=== PATIENT | female | born 1990 ===

== ENCOUNTER 2019-10-10 13:14 | Inpatient (IN) ==
[2019-10-10 14:04] LABS: Hematocrit 41.2 % (37.0-47.0); Hemoglobin 13.7 gm/dL (12.5-16.0); Mean Cell Volume 87.1 fl (78-100); Mean Corpuscular Hgb Conc 33.3 g/dl (32-36); Mean Platelet Volume 9.2 fl (8-12.5); Neutrophil # 14.4 K/mm3 (1.3-6.0); Neutrophil % 88.1 % (42-75.0); Platelet Count 243 K/mm3 (150-450); Red Blood Count 4.73 M/mm3 (4.2-5.4); Red Cell Distribution Width 11.6 % (11.5-14.0); White Blood Count 16.3 K/mm3 (4.0-10.5)
--- NOTE | 2019-10-10 14:06 | ERNOTE ---
Abdominal HPI - Narrative Date of Service: 10/10/19 - General Chief Complaint: Abdominal Pain Time Seen by Provider: 10/10/19 13:41 Source: patient, family - Immun/Allergies/Home Medications Immunizatons: IMMUNIZATION HX Immunizations Up to Date Yes History of Influenza Vaccine No Hx Pneumococcal Vaccination No Allergies/Adverse Reactions: Allergies No Known Allergies Allergy (Verified 01/01/15 11:05) Home Medications: HOME MEDICATIONS NK 10/10/19 [Last Taken Unknown] - History of Present Illness Narrative: -29 y/o female presents with acute symptoms over the past few hours of upper abdominal pain. Pain is 9/10. She notes she may have had an episode of this similar type pain approximately 5 to 10 years ago. She is unsure the treatment unsure the cause. She has had one child vaginal delivery without significant complications. No previous abdominal surgeries. Last menstrual cycle was 2 weeks ago without significant change. She notes this morning she is had significant nausea and emesis. Multiple episodes mostly dry heaving as she has not retained any p.o. intake this morning. Note she has attempted to drink some Gatorade that did not significant change her symptoms. Her notes that she has taken Gas-X without significant relief of symptoms. Patient otherwise notes she is mildly tired and weak diffusely, is unsure of the cause. She denies any syncope, trauma, falls. She otherwise denies any other acute symptoms. She notes no significant acute contacts or illnesses in the household. Review of Systems - Review of Systems Constitutional: Present: weakness, fatigue. Absent: fever EYE: Absent: eye discharge, blurred vision ENT: Absent: ear pain, nose pain, sore throat Respiratory: Absent: shortness of breath, cough Cardiology: Absent: chest pain, syncope Gastrointestinal/Abdominal: Present: nausea, vomiting, abdominal pain. Absent: diarrhea, constipation Genitourinary: Absent: frequency, pain, hematuria Musculoskeletal: Absent: back pain, joint pain Skin: Absent: rash, dryness Neurological: Absent: headache, numbness, tingling All Other Systems: All systems neg except as marked Medical History (Last Reviewed 10/10/19 @ 14:03 by JUDI Levine) No pertinent past medical history Surgical History: Surgical History (Last Reviewed 10/10/19 @ 14:03 by JUDI Levine) No pertinent past surgical history Family History: Family History (Last Reviewed 10/10/19 @ 14:03 by JUDI Levine) Other No pertinent family history Social History: (Last Reviewed 10/10/19 @ 14:03 by JUDI Levine) Tobacco: Smoking Status: Never smoker Alcohol: alcohol intake: never Substance Use: substance use type: does not use Physical Exam - Physical Exam General Appearance: Present: wd/wn, alert, no apparent distress Head Exam: Present: normal inspection, no evidence of injury Eye Exam: Normal inspection: bilateral, PERRL: bilateral, EOMI: bilateral Ears, Nose, Throat: Present: normal ENT inspection Neck: Present: normal inspection, nontender Respiratory: Present: no respiratory distress, normal breath sounds, no accessory muscle use, chest nontender, lungs clear Cardiovascular/Chest: Present: regular rate, rhythm, no murmur, normal peripheral pulses Peripheral Pulses: N=norm/S=strong/W=weak/B=bound/A=absent: Radial (R): Normal, Radial (L): Normal, Dorsalis-pedis (R): Normal, Dorsalis-pedis (L): Normal Gastrointestinal/Abdominal: Present: nondistended, soft, tenderness - upper diffusely Back Exam: Present: normal inspection, normal range of motion, no CVA tenderness Extremity Exam: Present: normal inspection, non-tender, normal range of motion, no edema Neurological Exam: Present: alert, oriented, normal mood/affect, no motor/sensory deficits Skin Exam: Present: normal color, warm/dry Progress - Date and Time Seen: Date and Time: 10/10/19 14:04 HPI and exam performed. Patient appears acutely ill with significant abdominal pain. Exam no significant abnormalities outside of diffuse abdominal pain in the upper and epigastric regions. Discussed with patient obtaining labs including CBC, CMP, lipase, amylase, urine, hCG, flat and upright imaging. Will begin with these exams, continue to monitor, if patient's hCG is negative will treat nausea with Zofran., Will continue to monitor patient and treat accordingly. Patient expressed understand agrees to plan. 10/10/19 15:05 Labs revealed concern for acute pancreatitis, will obtain abdominal ultrasound to further evaluate. Patient will continue n.p.o., will begin giving IV fluids. Patient was also given a dose of IV pain medication to help maintain her overall comfort. Will obtain ultrasound, evaluate results and continue to care for patient at this time. 10/10/19 16:43 Ultrasound indicated to rule out multiple risk factors including abscess and pancreatitis. Also concern for possible gallbladder causes of her acute symptoms. Ultrasound is the most appropriate imaging for both pancreatitis, abscess, gallbladder evaluation. We will continue with patient's treatment, control pain with IV medication PRN. 10/10/19 18:05 Ultrasound did not reveal any significant gallstones or gallbladder obstructions. Otherwise no other significant acute findings, based on patient's clinical picture as well as lab findings and lipase that is significantly eleva ricardo concern for acute pancreatic inflammation. Discussed the case with medicine provider iron miner blasting Dr. Norwood, including lab findings and clinical presentation. Discussed admitting patient to continue an inpatient stay patient will continue n.p.o. and fluids to be adjusted to 250/h. Medicine provider agreed with this treatment plan and will continue to monitor and further patient's care. She wi ll be admitted to the hospital at this time. - Results and Orders Patient's Lab Results:: I have reviewed the patient's lab results. Results and Orders: Laboratory Tests 10/10/19 10/10/19 10/10/19 13:55 13:55 13:58 WBC 16.3 H Hgb 13.7 Total Protein 8.4 H Amylase 2193 H Lipase 29816 H Urine Protein 30 H - Vital Signs Patient's Vital Signs:: I have reviewed the patient's vital signs. Vital Signs: Vital Signs 10/10/19 13:20 Temperature 36.0 C Pulse Rate 71 Respiratory Rate 16 Blood Pressure 103/62 O2 Sat by Pulse Oximetry 99 - X-Ray X-Ray #1 X-Ray: abdomen Interpretation: Reviewed by ga X-ray Comments: Abdomen Flat W/ Upright * DATE: 10/10/2019 3:41 PM INDICATION: Abdominal Pain. COMPARISON: None. TECHNIQUE: Supine and upright views of the abdomen were obtained. FINDINGS: Abdomen: Nonobstructive bowel gas pattern. No free air. Moderate colonic stool retention. Lower Chest: The visualized lower chest demonstrates no acute abnormality. Skeletal Structures and Soft Tissues: No acute osseous abnormality. Normal soft tissues. IMPRESSION: Nonobstructive bowel gas pattern. Moderate colonic stool retention. Electronically signed by Zoie Lowery D.O.. Zoie Lowery DO - CT/Ultrasound CT/Ultrasound Narrative: US Abdomen Complete 10/10/2019 5:31 PM INDICATION: Abdominal pain with vomiting and elevated lipase. COMPARISON: No relevant priors.. TECHNIQUE: Abdominal ultrasound was performed. Color Doppler was applied were appropriate. FINDINGS: No free fluid in the visualized abdomen. Liver: Normal hepatic parenchyma without focal mass. The liver measures 12.9 cm craniocaudal. Bile ducts: The distal common bile duct measures 2 mm. Impression Gallbladder: The gallbladder is partially distended. The wall measures 2 mm thickness. There is a questionable gallbladder polyp which measures up to 5 mm. No pericholecystic fluid. The sonographic Montalvo's sign is absent. Pancreas: Segmentally visualized pancreas which appears normal where visualized. Spleen: Normal spleen measuring 8.6 cm in length. Kidneys: Both kidneys are negative for hydronephrosis. The right kidney measures 9.4 cm, the left 10.3 cm. IMPRESSION: 1. Probable incidental gallbladder polyp measuring up to 5 mm in diameter. A follow-up ultrasound in 6 months could be obtained to ensure stability. 2. Otherwise, normal gallbladder with no evidence of acute cholecystitis. No mobile stones visualized. Normal caliber bile ducts. 3. Segmentally visualized pancreas which appears normal where visualized. Electronically signed by Zoie Lowery D.O.. Zoie Lowery DO - Progress/Reassessment Chief Complaint: Abdominal Pain Progress:: Improved Plan - Plan Plan: Admit to the hospital for acute pancreatitis treatment. Departure Clinical Impression: Acute pancreatitis Qualifiers: Pancreatitis type: unspecified pancreatitis type Acute pancreatitis complication: unspecified Qualified Code(s): K85.90 - Acute pancreatitis without necrosis or infection, unspecified - Departure Disposition: Still a patient Condition: Stable Print Language: Welsh Additional Instructions: Patient will be admitted to the hospital for further care under the medicine team. Discussed case with medicine provider they agreed to admit patient and f urther patient's care. Patient will continue n.p.o. with IV fluids running.
[2019-10-10] MEDS ORDERED: ONDANSETRON HCL/PF 2 MG/ML VIAL IV ONE (14:18)
[2019-10-10 14:24] LABS: Urine Appearance Slightly Cloudy (CLEAR); Urine Color Yellow
[2019-10-10 14:25] LABS: Urine Bilirubin Negative (NEGATIVE); Urine Blood Negative /ul (NEGATIVE); Urine Ketone 5 mg/dL (NEGATIVE); Urine Nitrite Negative (NEGATIVE); Urine Protein 30 mg/dL (NEGATIVE); Urine Urobilinogen Normal (NORMAL); Urine WBC 0-5 /hpf (0-5); Urine pH 6.5 pH (5.0-7.0)
[2019-10-10 14:26] LABS: Urine Bacteria TRACE; Urine RBC None Seen /hpf (0-5)
[2019-10-10 14:27] LABS: Albumin * 4.2 gm/dl (3.4-5.0); BUN/Creatinine Ratio 18.6 (9.0-21.6); Bilirubin, Total 0.3 mg/dL (0.0-1.1); Ca. Corrected For Albumin 8.6 mg/dL (8.4-10.2); Calcium * 9.1 mg/dL (7.9-10.9); Carbon Dioxide 26.6 mmol/L (24-32.6); Potassium 3.6 mmol/L (3.4-4.6); Total Protein 8.4 gm/dL (6.2-8.2)
[2019-10-10] MEDS ORDERED: NORMAL SALINE 1,000 ML IV ONE (14:40)
[2019-10-10] MEDS ORDERED: MORPHINE SULFATE 2 MG/ML DISP.SYRIN IV ONE ×2 (15:00→16:28)
--- NOTE | 2019-10-10 19:12 | HP ---
Chief Complaint - Chief Complaint Date of Service: 10/10/19 Time of Service: 19:12 Chief Complaint: Abdominal pain. History of Present Illness: 29-year-old female with no pertinent past medical history presented to the hospital yesterday afternoon after developing acute right upper quadrant abdominal pain. She developed nausea and vomiting with this. She has had this happen to her one time previously, unsure of the cause. Pertinent labs include an elevated white count 16.3, [place] [address]. Her vital signs are stable and she been afebrile. Showed normal gallbladder without evidence of acute cholecystitis. No stones identified. Normal bile ducts. Pancreas that was seen and appeared to be in normal limits as well. Patient denies being a big alcohol drinker as well. Hospital as an inpatient for acute pancreatitis for fluid resuscitation, pain control. Medical History (Last Reviewed 10/10/19 @ 18:44 by Abhinav Conley RN) No pertinent past medical history Surgical History: Surgical History (Last Reviewed 10/10/19 @ 18:44 by Abhinav Conley RN) No pertinent past surgical history Family History: Family History (Last Reviewed 10/10/19 @ 18:44 by Abhinav Conley RN) Other No pertinent family history Social History: (Last Reviewed 10/10/19 @ 18:44 by Abhinav Conley RN) Tobacco: Smoking Status: Never smoker Alcohol: alcohol intake: never Substance Use: substance use type: does not use Review Of Systems (GEN) - Review of Systems Generalized/Overall Review: Absent: Chills, Fever EENTM: Present: No Symptoms Reported Respiratory: Absent: Cough, Shortness of Breath Cardiac: Present: No Symptoms Reported Abdominal: Present: Nausea, Abdominal Pain. Absent: Vomiting Genitourinary: Present: No Symptoms Reported Musculoskeletal: Present: No Symptoms Reported Neurological: Present: No Symptoms Reported Skin: Present: No Symptoms Reported Endocrine: Present: No Symptoms Reported Immunizations: IMMUNIZATION HX Immunizations Up to Date Yes History of Influenza Vaccine No Hx Pneumococcal Vaccination No Allergies/Adverse Reactions: Allergies Allergy/AdvReac Type Severity Reaction Status Date / Time No Known Allergies Allergy Verified 10/10/19 18:45 Home Medications: HOME MEDICATIONS NK 10/10/19 [Last Taken Unknown] Exam - Exam Vital Signs: Vital Signs - Last Taken Temp 36.7 C 10/10/19 18:45 Pulse 76 10/10/19 18:45 Resp 18 10/10/19 18:45 BP 107/51 10/10/19 18:45 Pulse Ox 98 10/10/19 18:45 Constitutional: Present: Alert, Oriented x3, Moderate distress - abdominal pain Eye Exam: bilateral eye: normal inspection, EOMI Neck: Present: non-tender, supple Back Exam: Present: no CVA tenderness Respiratory: Present: lungs clear, normal breath sounds Cardiovascular/Chest: Present: regular rate, rhythm. Absent: no murmur Abdomen: Present: Normal bowel sounds, nondistended, tender - RUQ tenderness to palpation. Absent: guarding, rigidity Skin Exam: Present: normal color, warm/dry Appearance: Present: appropriate appearance, appropriate insight Eye contact: Present: cooperative, good eye contact Thoughts: Present: normal thought pattern, normal mood /affect Diagnostic Studies: Abnormal Lab Results 10/10/19 10/10/19 10/10/19 Range/Units 13:55 13:55 13:58 WBC 16.3 H (4.0-10.5) K/mm3 Immature Gran % (Auto) 0.60 H (0.001-0.429) % Immature Gran # (Auto) 0.10 H (0.000-0.0310) K/mm3 Neutrophils % 88.1 H (42-75.0) % Lymphocytes % 6.7 L (20-51) % Neutrophils # 14.4 H (1.3-6.0) K/mm3 Lymphocytes # 1.10 L (1.5-3.5) k/mm3 Random Glucose 137 H (70-110) mg/dL Total Protein 8.4 H (6.2-8.2) gm/dL Amylase 2193 H (25-115) U/L Lipase 11014 H (73-393) U/L Urine Protein 30 H (NEGATIVE) mg/dL Laboratory Results WBC 16.3 K/mm3 (4.0-10.5) H 10/10/19 13:55 RBC 4.73 M/mm3 (4.2-5.4) 10/10/19 13:55 Hgb 13.7 gm/dL (12.5-16.0) 10/10/19 13:55 Hct 41.2 % (37.0-47.0) 10/10/19 13:55 MCV 87.1 fl (78-100) 10/10/19 13:55 MCH 29.0 pg (27-31) 10/10/19 13:55 MCHC 33.3 g/dl (32-36) 10/10/19 13:55 RDW 11.6 % (11.5-14.0) 10/10/19 13:55 Plt Count 243 K/mm3 (150-450) 10/10/19 13:55 MPV 9.2 fl (8-12.5) 10/10/19 13:55 Immature Gran % (Auto) 0.60 % (0.001-0.429) H 10/10/19 13:55 Immature Gran # (Auto) 0.10 K/mm3 (0.000-0.0310) H 10/10/19 13:55 Neutrophils % 88.1 % (42-75.0) H 10/10/19 13:55 Lymphocytes % 6.7 % (20-51) L 10/10/19 13:55 Monocytes % 4.4 % (0.0-9) 10/10/19 13:55 Eosinophils % 0.0 % (0.0-3.0) 10/10/19 13:55 Basophils % 0.2 % (0.0-1.0) 10/10/19 13:55 Nucleated RBC % 0.0 k/mm3 (0-1) 10/10/19 13:55 Neutrophils # 14.4 K/mm3 (1.3-6.0) H 10/10/19 13:55 Lymphocytes # 1.10 k/mm3 (1.5-3.5) L 10/10/19 13:55 Monocytes # 0.7 k/mm3 (0.0-1.0) 10/10/19 13:55 Eosinophils # 0.0 k/mm3 (0.0-0.7) 10/10/19 13:55 Absolute Basophils 0.0 k/mm3 (0.0-0.1) 10/10/19 13:55 Sodium 138 mmol/L (132-142) 10/10/19 13:55 Plasma Sodium 139 mmol/L (130-142) 10/10/19 13:55 Potassium 3.6 mmol/L (3.4-4.6) 10/10/19 13:55 Chloride 103 mmol/L (97-106) 10/10/19 13:55 Carbon Dioxide 26.6 mmol/L (24-32.6) 10/10/19 13:55 Anion Gap 12.0 mmol/L (6.8-13.8) 10/10/19 13:55 BUN 11 mg/dL (3-23) 10/10/19 13:55 Creatinine 0.59 mg/dL (0.4-1.4) 10/10/19 13:55 Est GFR (Non-Af Amer) 130 mL/min (60-130) 10/10/19 13:55 BUN/Creatinine Ratio 18.6 (9.0-21.6) 10/10/19 13:55 Random Glucose 137 mg/dL (70-110) H 10/10/19 13:55 Calcium 9.1 mg/dL (7.9-10.9) 10/10/19 13:55 Calcium Adj for Albumin 8.6 mg/dL (8.4-10.2) 10/10/19 13:55 Total Bilirubin 0.3 mg/dL (0.0-1.1) 10/10/19 13:55 AST 16 U/L (0-48) 10/10/19 13:55 ALT 22 U/L (19-67) 10/10/19 13:55 Alkaline Phosphatase 52 U/L (50-170) 10/10/19 13:55 Total Protein 8.4 gm/dL (6.2-8.2) H 10/10/19 13:55 Albumin 4.2 gm/dl (3.4-5.0) 10/10/19 13:55 Amylase 2193 U/L (25-115) H 10/10/19 13:55 Lipase 22314 U/L (73-393) H 10/10/19 13:55 Urine Color Yellow 10/10/19 13:58 Urine Appearance Slightly cloudy (CLEAR) 10/10/19 13:58 Urine pH 6.5 pH (5.0-7.0) 10/10/19 13:58 Ur Specific [place] 1.030 SP.GR. (1.005-1.010) 10/10/19 13:58 Urine Protein 30 mg/dL (NEGATIVE) H 10/10/19 13:58 Urine Glucose (UA) Negative mg/dL (NEGATIVE) 10/10/19 13:58 Urine Ketones 5 mg/dL (NEGATIVE) 10/10/19 13:58 Urine Blood Negative /ul (NEGATIVE) 10/10/19 13:58 Urine Nitrate Negative (NEGATIVE) 10/10/19 13:58 Urine Bilirubin Negative mg/dl (NEGATIVE) 10/10/19 13:58 Prot Sulfosalicylic Acd 1+ mg/dL (0) 10/10/19 13:58 Urine Urobilinogen Normal EU/dl (NORMAL) 10/10/19 13:58 Ur Leukocyte Esterase Negative /ul (NEGATIVE) 10/10/19 13:58 Urine RBC None seen /hpf (0-5) 10/10/19 13:58 Urine WBC 0-5 /hpf (0-5) 10/10/19 13:58 Ur Epithelial Cells 0-5 /hpf (0-5) 10/10/19 13:58 Urine Bacteria Trace (NONE) 10/10/19 13:58 Urine Culture Comments No culture indicated 10/10/19 13:58 Urine HCG, Qual Negative (NEGATIVE) 10/10/19 13:56 Assessment/Plan - Narrative Narrative: 29-year-old female with acute pancreatitis. Admitted to inpatient for pain control, hydration, and nausea control. Patient started on morphine and Zofran IV. Fluids running at 250 an hour normal saline. Clears diet ordered. We will continue to monitor vital signs, nurse to call questions or concerns. SCDs for DVT prophylaxis. - Assessment/Plan (1) Acute pancreatitis Problem: Acute Qualifiers: Pancreatitis type: unspecified pancreatitis type Acute pancreatitis complication: unspecified Qualified Code(s): K85.90 - Acute pancreatitis without necrosis or infection, unspecified
[2019-10-10] MEDS: ONDANSETRON HCL/PF 2 MG/ML VIAL IV PRN (19:18)
[2019-10-10] MEDS: MORPHINE SULFATE 4 MG/ML SYRG IV PRN ×2 (19:19→23:20)
[2019-10-10] MEDS: NORMAL SALINE 1,000 ML IV PRN ×2 (19:47→23:47)
[2019-10-11] MEDS: ONDANSETRON HCL/PF 2 MG/ML VIAL IV PRN (03:29)
[2019-10-11] MEDS: MORPHINE SULFATE 4 MG/ML SYRG IV PRN ×4 (03:30→23:15)
[2019-10-11] MEDS: NORMAL SALINE 1,000 ML IV PRN ×5 (03:33→20:18)
[2019-10-11 10:19] LABS: Hematocrit 33.6 % (37.0-47.0); Hemoglobin 10.9 gm/dL (12.5-16.0); Mean Cell Volume 89.8 fl (78-100); Mean Corpuscular Hemoglobin 29.1 pg (27-31); Mean Corpuscular Hgb Conc 32.4 g/dl (32-36); Mean Platelet Volume 9.1 fl (8-12.5); Neutrophil % 79.7 % (42-75.0); Platelet Count 173 K/mm3 (150-450); Red Blood Count 3.74 M/mm3 (4.2-5.4); Red Cell Distribution Width 11.8 % (11.5-14.0); White Blood Count 11.2 K/mm3 (4.0-10.5)
[2019-10-11 10:32] LABS: Albumin * 2.7 gm/dl (3.4-5.0); Anion Gap 11.2 mmol/L (6.8-13.8); Bilirubin, Total 0.4 mg/dL (0.0-1.1); Ca. Corrected For Albumin 7.6 mg/dL (8.4-10.2); Calcium * 6.9 mg/dL (7.9-10.9); Carbon Dioxide 25.4 mmol/L (24-32.6); Potassium 3.6 mmol/L (3.4-4.6); Total Protein 5.9 gm/dL (6.2-8.2)
[2019-10-11 11:12] LABS: Lipase 8862 U/L (73-393)
[2019-10-11 11:13] LABS: Amylase * 2195 U/L (25-115)
--- NOTE | 2019-10-11 20:19 | PN ---
Subjective - Date and Time Seen Date: 10/11/19 Time: 20:16 Subjective Narrative: Patient much more comfortable today, tolerating clear liquids and little doses. Pain much better controlled though still requiring IV pain medicine. Vital signs are stable and she is afebrile. No longer nauseous or vomiting. Objective - Review of Systems Generalized/Overall Review: Denies: Chills, Fever Respiratory: Denies: Cough, Shortness of Breath Cardiac: Denies: Chest Pain, Edema Abdominal: Reports: Abdominal Pain - minimal. Denies: Nausea, Vomiting Genitourinary Symptoms: Reports: No Symptoms Reported Musculoskeletal Complaints: Reports: No Symptoms Reported Neurological: Reports: No Symptoms Reported Skin: Reports: No Symptoms Reported - Vitals Vitals: Last Vital Signs Temp 36.9 C 10/11/19 19:42 Pulse 83 10/11/19 19:42 Resp 16 10/11/19 19:42 BP 104/63 10/11/19 19:42 Pulse Ox 100 10/11/19 19:42 - Abnormal Lab Findings Abnormal Lab Findings: Abnormal Lab Results 10/11/19 10/11/19 10/11/19 Range/Units 10:15 10:15 10:15 WBC 11.2 H D (4.0-10.5) K/mm3 RBC 3.74 L (4.2-5.4) M/mm3 Hgb 10.9 L (12.5-16.0) gm/dL Hct 33.6 L (37.0-47.0) % Immature Gran # (Auto) 0.04 H (0.000-0.0310) K/mm3 Neutrophils % 79.7 H (42-75.0) % Lymphocytes % 12.7 L (20-51) % Neutrophils # 9.0 H (1.3-6.0) K/mm3 Lymphocytes # 1.43 L (1.5-3.5) k/mm3 Chloride 109 H (97-106) mmol/L Est GFR (Non-Af Amer) 157 H D (60-130) mL/min Calcium 6.9 L (7.9-10.9) mg/dL Calcium Adj for Albumin 7.6 L (8.4-10.2) mg/dL ALT 11 L (19-67) U/L Alkaline Phosphatase 39 L (50-170) U/L Total Protein 5.9 L (6.2-8.2) gm/dL Albumin 2.7 L (3.4-5.0) gm/dl Amylase 2195 H (25-115) U/L Lipase 8862 H (73-393) U/L - Exam Constitutional: Present: Alert, Oriented x3, Cooperative, Well developed ENT Exam: Present: hearing grossly normal. Absent: nasal congestion, nasal drainage Neck: Present: non-tender, supple Respiratory: Present: lungs clear, normal breath sounds Cardiovascular/Chest: Present: regular rate, rhythm, no murmur Abdomen: Present: soft, tender - mild RUQ Skin Exam: Present: normal color, warm/dry Appearance: Present: appropriate appearance, appropriate insight Eye contact: Present: cooperative, good eye contact Thoughts: Present: normal thought pattern, normal mood /affect Assessment/Plan Plan Narrative: 29-year-old female with acute pancreatitis, improving. Continue current treatment plan for pain control, nausea control, hydration. Continue to advance diet as tolerated, slowly. We will continue to monitor vital signs, nurse to call questions or concerns. SCDs for DVT prophylaxis. Likely home tomorrow if she has no setbacks. - Problems/Diagnosis (1) Acute pancreatitis Problem: Acute Qualifiers: Pancreatitis type: unspecified pancreatitis type Acute pancreatitis complication: unspecified Qualified Code(s): K85.90 - Acute pancreatitis without necrosis or infection, unspecified
[2019-10-12] MEDS: NORMAL SALINE 1,000 ML IV PRN ×5 (00:18→18:51)
[2019-10-12] MEDS: MORPHINE SULFATE 4 MG/ML SYRG IV PRN ×2 (11:18→22:29)
--- NOTE | 2019-10-12 14:36 | PN ---
Subjective - Date and Time Seen Date: 10/12/19 Time: 14:33 Subjective Narrative: Patient resting comfortably in bed at this time. Patient's pain was still pretty significant this morning though, likely overdid it with pushing her clears yesterday. We will slow her down today and see how she does this afternoon this evening. Otherwise vital signs are stable and she is looking much better. Hopefully were able to progress her diet and let her go home tomorrow. Objective - Review of Systems Generalized/Overall Review: Denies: Weakness, Chills, Fever EENTM: Reports: No Symptoms Reported Respiratory: Reports: No Symptoms Reported Cardiac: Reports: No Symptoms Reported Abdominal: Reports: Abdominal Pain - Right upper quadrant. Denies: Nausea, Vomiting Genitourinary Symptoms: Reports: No Symptoms Reported Musculoskeletal Complaints: Reports: No Symptoms Reported Skin: Reports: No Symptoms Reported - Vitals Vitals: Last Vital Signs Temp 38.0 C 10/12/19 11:14 Pulse 96 10/12/19 11:14 Resp 14 10/12/19 11:14 BP 115/70 10/12/19 11:14 Pulse Ox 98 10/12/19 11:14 - Exam Constitutional: Present: Alert, Oriented x3, Cooperative, Well nourished Respiratory: Present: lungs clear, normal breath sounds Cardiovascular/Chest: Present: regular rate, rhythm, systolic murmur - 2/6 systolic murmur heard today, likely flow murmur Abdomen: Present: soft, nondistended, tender - Right upper quadrant. Absent: guarding Skin Exam: Present: normal color, warm/dry Appearance: Present: appropriate appearance, appropriate insight Thoughts: Present: normal thought pattern, normal mood /affect Assessment/Plan Plan Narrative: 29-year-old female with acute pancreatitis, improving. Continue current treatment plan for pain control, nausea control, hydration. Continue to advance diet as tolerated, slowly. We will continue to monitor vital signs, nurse to call questions or concerns. SCDs for DVT prophylaxis. Patient did struggle with advancing her diet yesterday but will continue to try. Still requiring some IV pain medicine, explained to her that we need to get her off this before she go home which she states her understanding to. Continue to work on this. Nurse to call questions or concerns. - Problems/Diagnosis (1) Acute pancreatitis Problem: Acute Qualifiers: Pancreatitis type: unspecified pancreatitis type Acute pancreatitis complication: unspecified Qualified Code(s): K85.90 - Acute pancreatitis without necrosis or infection, unspecified
[2019-10-12] MEDS: ACETAMINOPHEN 500 MG TABLET PO PRN (15:14)
[2019-10-13] MEDS: ACETAMINOPHEN 500 MG TABLET PO PRN ×2 (02:26→10:30)
[2019-10-13] MEDS: NORMAL SALINE 1,000 ML IV PRN (04:51)
[2019-10-13] MEDS: MORPHINE SULFATE 4 MG/ML SYRG IV PRN (16:47)
--- NOTE | 2019-10-13 21:58 | PN ---
Subjective - Date and Time Seen Date: 10/13/19 Time: 11:33 Subjective Narrative: Patient still struggling with advance her diet, pain with eating anything more than clears. Otherwise her nausea vomiting improved. She is ambulating often. Vital signs are stable and she is afebrile. Objective - Review of Systems Generalized/Overall Review: Denies: Weakness, Chills, Fever EENTM: Reports: No Symptoms Reported Respiratory: Reports: No Symptoms Reported Cardiac: Reports: No Symptoms Reported Abdominal: Reports: Abdominal Pain. Denies: Nausea, Vomiting Skin: Reports: No Symptoms Reported - Vitals Vitals: Last Vital Signs Temp 38.0 C 10/13/19 18:28 Pulse 77 10/13/19 18:28 Resp 17 10/13/19 18:28 BP 120/72 10/13/19 18:28 Pulse Ox 100 10/13/19 18:28 - Exam Constitutional: Present: Alert, Oriented x3 Respiratory: Present: lungs clear, normal breath sounds Cardiovascular/Chest: Present: regular rate, rhythm. Absent: edema Abdomen: Present: Normal bowel sounds, soft, tender - RUQ pain Extremity: Present: normal range of motion, non-tender. Absent: lower extremity edema Skin Exam: Present: normal color, warm/dry Appearance: Present: appropriate appearance, appropriate insight Eye contact: Present: cooperative, good eye contact Thoughts: Present: normal thought pattern, normal mood /affect Assessment/Plan Plan Narrative: 29-year-old female with acute pancreatitis, improving. Continue current treatment plan for pain control, nausea control, hydration. Continue to advance diet as tolerated, had difficulty with advancing her diet today. We will retry again tomorrow-Patient likely needs to slow down and try again. We will continue to monitor vital signs, nurse to call questions or concerns. We will repeat CBC and BMP in the morning. - Problems/Diagnosis (1) Acute pancreatitis Problem: Acute Qualifiers: Pancreatitis type: unspecified pancreatitis type Acute pancreatitis complication: unspecified Qualified Code(s): K85.90 - Acute pancreatitis without necrosis or infection, unspecified
[2019-10-14] MEDS: ACETAMINOPHEN 500 MG TABLET PO PRN ×2 (04:20→12:20)
[2019-10-14 07:18] LABS: Hematocrit 31.7 % (37.0-47.0); Hemoglobin 10.9 gm/dL (12.5-16.0); Mean Cell Volume 85.2 fl (78-100); Mean Corpuscular Hemoglobin 29.3 pg (27-31); Mean Corpuscular Hgb Conc 34.4 g/dl (32-36); Mean Platelet Volume 9.3 fl (8-12.5); Neutrophil # 11.3 K/mm3 (1.3-6.0); Neutrophil % 75.7 % (42-75.0); Platelet Count 200 K/mm3 (150-450); Red Blood Count 3.72 M/mm3 (4.2-5.4); Red Cell Distribution Width 11.7 % (11.5-14.0); White Blood Count 14.9 K/mm3 (4.0-10.5)
[2019-10-14] MEDS: ONDANSETRON HCL/PF 2 MG/ML VIAL IV PRN ×2 (07:22→13:54)
[2019-10-14 07:29] LABS: Anion Gap 14.7 mmol/L (6.8-13.8); BUN/Creatinine Ratio 3.9 (9.0-21.6); Calcium * 7.6 mg/dL (7.9-10.9); Carbon Dioxide 19.3 mmol/L (24-32.6)
--- NOTE | 2019-10-14 12:56 | PN ---
Subjective - Date and Time Seen Date: 10/14/19 Time: 12:50 Subjective Narrative: She continues to have right upper abdominal pain that radiates to her right flank and sometimes to her back. She has diarrhea every time she drinks liquids. Had some fevers overnight. Objective - Review of Systems Generalized/Overall Review: Reports: Chills, Fever Respiratory: Denies: Shortness of Breath Cardiac: Denies: Chest Pain Abdominal: Reports: Nausea, Abdominal Pain, Diarrhea Genitourinary Symptoms: Reports: No Symptoms Reported Musculoskeletal Complaints: Reports: No Symptoms Reported - Vitals Vitals: Last Vital Signs Temp 36.5 C 10/14/19 07:45 Pulse 87 10/14/19 07:45 Resp 16 10/14/19 07:45 BP 105/58 10/14/19 07:45 Pulse Ox 96 10/14/19 07:45 - Abnormal Lab Findings Abnormal Lab Findings: Abnormal Lab Results 10/14/19 10/14/19 Range/Units 07:00 07:00 WBC 14.9 H D (4.0-10.5) K/mm3 RBC 3.72 L (4.2-5.4) M/mm3 Hgb 10.9 L (12.5-16.0) gm/dL Hct 31.7 L (37.0-47.0) % Immature Gran % (Auto) 0.50 H (0.001-0.429) % Immature Gran # (Auto) 0.08 H (0.000-0.0310) K/mm3 Neutrophils % 75.7 H (42-75.0) % Lymphocytes % 15.7 L (20-51) % Neutrophils # 11.3 H (1.3-6.0) K/mm3 Monocytes # 1.1 H (0.0-1.0) k/mm3 Potassium 3.0 L (3.4-4.6) mmol/L Chloride 107 H (97-106) mmol/L Carbon Dioxide 19.3 L (24-32.6) mmol/L Anion Gap 14.7 H (6.8-13.8) mmol/L BUN 2 L D (3-23) mg/dL Est GFR (Non-Af Amer) 154 H (60-130) mL/min BUN/Creatinine Ratio 3.9 L (9.0-21.6) Calcium 7.6 L (7.9-10.9) mg/dL - Exam Constitutional: Present: Alert, Oriented x3, Cooperative, No distress, Young Respiratory: Present: normal breath sounds, no respiratory distress Cardiovascular/Chest: Present: regular rate, rhythm Abdomen: Present: soft, tender - epigastric, hypoactive Extremity: Absent: lower extremity edema Appearance: Present: appropriate appearance Eye contact: Present: cooperative, good eye contact Assessment/Plan - Problems/Diagnosis (1) Acute pancreatitis Problem: Acute Qualifiers: Pancreatitis type: unspecified pancreatitis type Acute pancreatitis complication: unspecified Qualified Code(s): K85.90 - Acute pancreatitis without necrosis or infection, unspecified Narrative: She does not appear unwell, but is having ongoing diarrhea and white blood cell count elevated. She continued to have fevers overnight. She has diarrhea when consuming liquids. She would like to try some rice, so we will advance her diet. She felt very hot with the morphine, so decreased dose from 4 mg to 2 mg. Will resume fluids, since she still has diarrhea when trying to drink anything. White blood cell count went up to 16.4 this morning. Will check triglycerides and repeat labs in the morning. If she continues to have fevers overnight, will check a CT tomorrow. Her abdomen is soft, so I do not anticipate she has a pancreatic pseudocyst, but will check for this if she does not improve. Unknown etiology. She denies alcohol intake and does not take any medicines. Transaminases and alk phos are not elevated. No evidence of cholecystitis on ultrasound. Urine hCG was negative on admission. With her fever and diarrhea, will check for COVID.
[2019-10-14] MEDS: MORPHINE SULFATE 2 MG/ML DISP.SYRIN IV PRN ×2 (13:53→21:36)
[2019-10-14] MEDS: NORMAL SALINE 1,000 ML IV PRN ×2 (13:53→23:07)
[2019-10-15] MEDS: ACETAMINOPHEN 500 MG TABLET PO PRN (02:23)
[2019-10-15] MEDS: MORPHINE SULFATE 2 MG/ML DISP.SYRIN IV PRN (02:26)
[2019-10-15 07:10] LABS: Hematocrit 32.7 % (37.0-47.0); Hemoglobin 11.2 gm/dL (12.5-16.0); Mean Cell Volume 84.5 fl (78-100); Mean Corpuscular Hemoglobin 28.9 pg (27-31); Mean Corpuscular Hgb Conc 34.3 g/dl (32-36); Mean Platelet Volume 8.7 fl (8-12.5); Neutrophil # 8.5 K/mm3 (1.3-6.0); Neutrophil % 69.9 % (42-75.0); Platelet Count 223 K/mm3 (150-450); Red Blood Count 3.87 M/mm3 (4.2-5.4); Red Cell Distribution Width 11.9 % (11.5-14.0); White Blood Count 12.2 K/mm3 (4.0-10.5)
[2019-10-15 07:26] LABS: Albumin * 2.5 gm/dl (3.4-5.0); Anion Gap 12.9 mmol/L (6.8-13.8); BUN/Creatinine Ratio 2.3 (9.0-21.6); Bilirubin, Total 0.3 mg/dL (0.0-1.1); Ca. Corrected For Albumin 8.4 mg/dL (8.4-10.2); Calcium * 7.5 mg/dL (7.9-10.9); Chol/HDL Risk Ratio 4.8 mg/dL (3.3-4.4); Potassium 2.9 mmol/L (3.4-4.6); Total Protein 6.4 gm/dL (6.2-8.2)
[2019-10-15] MEDS: NORMAL SALINE 1,000 ML IV PRN ×2 (09:09→19:00)
--- NOTE | 2019-10-15 09:09 | PN ---
Subjective - Date and Time Seen Date: 10/15/19 Time: 09:03 Subjective Narrative: She had another fever overnight. She felt better after eating rice. Still has epigastric pain that radiates to her back and right upper quadrant pain. Objective - Review of Systems Generalized/Overall Review: Reports: Chills, Fever Respiratory: Denies: Shortness of Breath Cardiac: Denies: Chest Pain, Edema Abdominal: Reports: Abdominal Pain. Denies: Vomiting Genitourinary Symptoms: Reports: No Symptoms Reported Musculoskeletal Complaints: Reports: No Symptoms Reported - Vitals Vitals: Last Vital Signs Temp 37.1 C 10/15/19 07:24 Pulse 73 10/15/19 07:24 Resp 16 10/15/19 07:24 BP 123/80 10/15/19 07:24 Pulse Ox 100 10/15/19 07:24 - Abnormal Lab Findings Abnormal Lab Findings: Abnormal Lab Results 10/15/19 10/15/19 Range/Units 06:52 06:52 WBC 12.2 H (4.0-10.5) K/mm3 RBC 3.87 L (4.2-5.4) M/mm3 Hgb 11.2 L (12.5-16.0) gm/dL Hct 32.7 L (37.0-47.0) % Immature Gran % (Auto) 0.50 H (0.001-0.429) % Immature Gran # (Auto) 0.06 H (0.000-0.0310) K/mm3 Neutrophils # 8.5 H (1.3-6.0) K/mm3 Potassium 2.9 L (3.4-4.6) mmol/L Chloride 107 H (97-106) mmol/L Carbon Dioxide 23.0 L (24-32.6) mmol/L BUN 1 L (3-23) mg/dL Est GFR (Non-Af Amer) 182 H (60-130) mL/min BUN/Creatinine Ratio 2.3 L (9.0-21.6) Calcium 7.5 L (7.9-10.9) mg/dL ALT 15 L (19-67) U/L Alkaline Phosphatase 49 L (50-170) U/L Albumin 2.5 L (3.4-5.0) gm/dl LDL Cholesterol 45 L (70-130) mg/dL HDL Cholesterol 15 L (40-60) mg/dL Cholesterol/HDL Ratio 4.8 H (3.3-4.4) mg/dL Lipase 842 H (73-393) U/L - Exam Constitutional: Present: Alert, Cooperative, No distress, Young Respiratory: Present: normal breath sounds, no respiratory distress Cardiovascular/Chest: Present: regular rate, rhythm Abdomen: Present: soft, tender - Epigastric Extremity: Absent: lower extremity edema Neurologic: Present: normal mood/affect Eye contact: Present: cooperative, good eye contact Assessment/Plan - Problems/Diagnosis (1) Acute pancreatitis Problem: Acute Qualifiers: Pancreatitis type: unspecified pancreatitis type Acute pancreatitis complication: unspecified Qualified Code(s): K85.90 - Acute pancreatitis without necrosis or infection, unspecified Narrative: She had another fever overnight and continues to have epigastric and right upper quadrant pain. Will obtain a CT abdomen with contrast today. White blood cell count improved from yesterday, lipase also improved from previous. Triglycerides were not elevated. She does not drink alcohol, and transaminases and alk phos were not elevated. No cholecystitis on ultrasound. Unclear etiology. She did say she recently started a multivitamin, so that is a p otential source. COVID test was negative yesterday. She has not had diarrhea since yesterday. She had better pain control with 2 mg IV morphine. We will also add Crocker for pain control, in anticipation of discharge. If CT is negative and she has no fever tonight, potential discharge tomorrow. (2) Hypokalemia Problem: Acute Narrative: Potassium was 2.9 today. Start 40 mEq K-Dur p.o. twice daily.
[2019-10-15] MEDS: POTASSIUM CHLORIDE 20 MEQ TABLET.SA PO SCH ×2 (09:25→16:49)
[2019-10-15] MEDS: HYDROcodone/ACETAMINOPHEN 1 EACH TABLET PO PRN ×3 (09:25→21:07)
[2019-10-15] MEDS ORDERED: DIATRIZOATE MEGLUMINE, SODIUM 30 ML BTL ONE (11:28)
[2019-10-15] MEDS ORDERED: DIATRIZOATE MEGLUMINE, SODIUM 30 ML BTL PO ONE (11:31)
[2019-10-15] MEDS: ONDANSETRON HCL/PF 2 MG/ML VIAL IV PRN (12:08)
[2019-10-16] MEDS: HYDROcodone/ACETAMINOPHEN 1 EACH TABLET PO PRN (03:16)
[2019-10-16] MEDS: NORMAL SALINE 1,000 ML IV PRN (04:57)
[2019-10-16] MEDS: ACETAMINOPHEN 500 MG TABLET PO PRN (07:24)
[2019-10-16] MEDS: POTASSIUM CHLORIDE 20 MEQ TABLET.SA PO SCH (08:20)
--- NOTE | 2019-10-16 11:33 | DS ---
(1) Acute pancreatitis Problem: Acute Qualifiers: Pancreatitis type: unspecified pancreatitis type Acute pancreatitis complication: unspecified Qualified Code(s): K85.90 - Acute pancreatitis without necrosis or infection, unspecified (2) Hypokalemia Problem: Acute Date of Discharge:: 10/16/19 Hospital Course: Pt presented to the ED with severe upper abdominal pain, and was diagnosed with pancreatitis. Etiology unclear, as she does not drink alcohol, no cholecystitis per US or labs, triglycerides not elevated. The only meds she takes is a multivitamin that was recently started, so this could potentially be the source. Her admission duration was six days, for ongoing severe abdominal pain and persistent fevers. CT abdomen was checked, as it was felt her hospital stay was a bit extended, and the CT did not reveal pancreatic abscess or cyst/pseudocyst. There was an area of low-attenuation on her liver, but this was not mentioned on her ultrasound that was done on admission. Her CT did show some atelectasis, so there is a chance her fever could come from the atelectasis. She developed some hypokalemia while she was here, which was replaced with p.o. K-Dur. Repeat CMP has been ordered for 1 week to be done at hospital follow-up visit. She was able to tolerate fluids and raised by the day of discharge, and she felt comfortable going home. Procedures Performed: none Results and Findings: Lab Pending Results 10/10/19 13:55: WBC 16.3 H, RBC 4.73, Hgb 13.7, Hct 41.2, MCV 87.1, MCH 29.0, MCHC 33.3, RDW 11.6, Plt Count 243, MPV 9.2, Immature Gran % (Auto) 0.60 H, Immature Gran # (Auto) 0.10 H, Neutrophils % 88.1 H, Lymphocytes % 6.7 L, Monocytes % 4.4, Eosinophils % 0.0, Basophils % 0.2, Nucleated RBC % 0.0, Neutrophils # 14.4 H, Lymphocytes # 1.10 L, Monocytes # 0.7, Eosinophils # 0.0, Absolute Basophils 0.0 10/10/19 13:55: Sodium 138, Plasma Sodium 139, Potassium 3.6, Chloride 103, Carbon Dioxide 26.6, Anion Gap 12.0, BUN 11, Creatinine 0.59, Est GFR (Non-Af Amer) 130, BUN/Creatinine Ratio 18.6, Random Glucose 137 H, Calcium 9.1, Calcium Adj for Albumin 8.6, Total Bilirubin 0.3, AST 16, ALT 22, Alkaline Phosphatase 52, Total Protein 8.4 H, Albumin 4.2, Amylase 2193 H, Lipase 58232 H 10/10/19 13:56: Urine HCG, Qual Negative 10/10/19 13:58: Urine Color Yellow, Urine Appearance Slightly cloudy, Urine pH 6.5, Ur Specific [place] 1.030, Urine Protein 30 H, Urine Glucose (UA) Negative, Urine Ketones 5, Urine Blood Negative, Urine Nitrate Negative, Urine Bilirubin Negative, Prot Sulfosalicylic Acd 1+, Urine Urobilinogen Normal, Ur Leukocyte Esterase Negative, Urine RBC None seen, Urine WBC 0-5, Ur Epithelial Cells 0-5, Urine Bacteria Trace, Urine Culture Comments No culture indicated 10/11/19 10:15: WBC 11.2 H D, RBC 3.74 L, Hgb 10.9 L, Hct 33.6 L, MCV 89.8, MCH 29.1, MCHC 32.4, RDW 11.8, Plt Count 173, MPV 9.1, Immature Gran % (Auto) 0.40, Immature Gran # (Auto) 0.04 H, Neutrophils % 79.7 H, Lymphocytes % 12.7 L, Monocytes % 6.9, Eosinophils % 0.1, Basophils % 0.2, Nucleated RBC % 0.0, Neutrophils # 9.0 H, Lymphocytes # 1.43 L, Monocytes # 0.8, Eosinophils # 0.0, Absolute Basophils 0.0 10/11/19 10:15: Sodium 142, Plasma Sodium 142, Potassium 3.6, Chloride 109 H, Carbon Dioxide 25.4, Anion Gap 11.2, BUN 7, Creatinine 0.50, Est GFR (Non-Af Amer) 157 H D, BUN/Creatinine Ratio 14.0, Random Glucose 89 D, Calcium 6.9 L, Calcium Adj for Albumin 7.6 L, Total Bilirubin 0.4, AST 14, ALT 11 L, Alkaline Phosphatase 39 L, Total Protein 5.9 L, Albumin 2.7 L 10/11/19 10:15: Amylase 2195 H, Lipase 8862 H 10/14/19 07:00: WBC 14.9 H D, RBC 3.72 L, Hgb 10.9 L, Hct 31.7 L, MCV 85.2, MCH 29.3, MCHC 34.4, RDW 11.7, Plt Count 200, MPV 9.3, Immature Gran % (Auto) 0.50 H, Immature Gran # (Auto) 0.08 H, Neutrophils % 75.7 H, Lymphocytes % 15.7 L, Monocytes % 7.7, Eosinophils % 0.2, Basophils % 0.2, Nucleated RBC % 0.0, Neutrophils # 11.3 H, Lymphocytes # 2.34, Monocytes # 1.1 H, Eosinophils # 0.0, Absolute Basophils 0.0 10/14/19 07:00: Sodium 138, Plasma Sodium 138, Potassium 3.0 L, Chloride 107 H, Carbon Dioxide 19.3 L, Anion Gap 14.7 H, BUN 2 L D, Creatinine 0.51, Est GFR (Non-Af Amer) 154 H, BUN/Creatinine Ratio 3.9 L, Random Glucose 84, Calcium 7.6 L 10/14/19 13:58: SARS-CoV-2 (PCR) Not detected 10/15/19 06:52: WBC 12.2 H, RBC 3.87 L, Hgb 11.2 L, Hct 32.7 L, MCV 84.5, MCH 28.9, MCHC 34.3, RDW 11.9, Plt Count 223, MPV 8.7, Immature Gran % (Auto) 0.50 H, Immature Gran # (Auto) 0.06 H, Neutrophils % 69.9, Lymphocytes % 20.4, Monocytes % 8.2, Eosinophils % 0.8, Basophils % 0.2, Nucleated RBC % 0.0, Neutrophils # 8.5 H, Lymphocytes # 2.48, Monocytes # 1.0, Eosinophils # 0.1, Absolute Basophils 0.0 10/15/19 06:52: Sodium 140, Plasma Sodium 140, Potassium 2.9 L, Chloride 107 H, Carbon Dioxide 23.0 L, Anion Gap 12.9, BUN 1 L, Creatinine 0.44, Est GFR (Non-Af Amer) 182 H, BUN/Creatinine Ratio 2.3 L, Random Glucose 103, Calcium 7.5 L, Calcium Adj for Albumin 8.4, Total Bilirubin 0.3, AST 12, ALT 15 L, Alkaline Phosphatase 49 L, Total Protein 6.4, Albumin 2.5 L, Triglycerides 67, Cholesterol 73, LDL Cholesterol 45 L, VLDL Cholesterol 13, HDL Cholesterol 15 L, Cholesterol/HDL Ratio 4.8 H, Lipase 842 H Discharge Location: Home Disposition: Home self-care Condition: Stable Discharge Activity: Activity as tolerated Discharge Diet: Low fat/chol Referrals: Wang Norwood DO [Staff Physician] - One Week (Please schedule with Dr. Norwood or Dr. Champion within one week) Prescriptions (Any new or edited meds): HYDROcodone/ACETAMINOPHEN [[place] 5-325] 1 ea PO Q4H PRN #10 tab PRN Reason: Moderate Pain (Pain Scale 4-6) Transmission Status: Sent to [facility] 1430 Complete Home Medications List: Complete Home Medication List: HYDROcodone/ACETAMINOPHEN [[place] 5-325] 1 ea PO Q4H PRN #10 tab 10/16/19 Forms: Patient Portal Registration
[2019-10-16 13:19] VITALS: BP 116/76
== END 2019-10-16 13:00 | disposition home or self-care (01) | DRG 440 ==
LOC: ER 13:14 → MS 18:14
PROVIDERS: ADMIT Family Medicine; ATTEND Family Medicine
CPT/HCPCS: 36415; 74019; 74020; 74160; 76700; 80048; 80053; 80061; 81001; 82150; 83690; 84703; 85025; 96374; 96375; 96376; 99284; 99285; C9803; J2405; Q9963; Q9967